=== PATIENT | male | born 1995 | race Native Hawaiian/Other Pacific Islander ===

== ENCOUNTER 2023-02-14 20:56 | Emergency (ER) | payer OTHER, SELFPAY ==
[2023-02-14 21:08] VITALS: BP 127/55; PULSE 55; RESP 18; TEMP 36.8; O2SAT 95
[2023-02-14 21:12] VITALS: BP 127/55; PULSE 55; RESP 18; TEMP 36.8; O2SAT 95; BMI 31.8
[2023-02-14 21:15] VITALS: BP 127/55; PULSE 55; RESP 18; TEMP 36.8; O2SAT 95
[2023-02-14 22:12] LABS: MANUAL DIFF FLAG NO
[2023-02-14 22:13] LABS: Basophils Percent Auto 0.3 % (0-2); Eosinophils Percent Auto 0.3 % (0-4); Hematocrit 39.3 % (42.0-52.0); Hemoglobin 13.3 g/dl (14.0-18.0); Imm Gran Abs Auto 0.07 X10*3/uL (0.00-0.03); Imm Gran Pct Auto 0.6 % (0.0-0.4); Lymphocytes Absolute Auto 2.3 X10*3/uL (1.2-4.9); Lymphocytes Percent Auto 20.3 % (20-40); Mean Corpuscular HGB Conc 33.8 g/dl (31.0-36.0); Mean Corpuscular Hemoglobin 29.5 pg (27.0-33.0); Mean Corpuscular Volume 87.1 fL (80.0-98.0); Mean Platelet Volume 9.9 fL (9.4-12.4); Monocytes Absolute Auto 0.8 X10*3/uL (0.1-1.2); Monocytes Percent Auto 6.6 % (2-11); Neutrophils Absolute Auto 8.3 x10*3/uL (2.0-8.3); Neutrophils Percent Auto 71.9 % (45-73); Platelet Count 281 X10*3/uL (160-400); Red Blood Count 4.51 X10*6/uL (4.60-5.80); Red Cell Distribution Width 12.2 % (11.0-16.0); White Blood Count 11.5 X10*3/uL (4.8-10.8)
[2023-02-14 22:29] LABS: Acetaminophen LAB < 17 mcg/mL (<30); Alanine Aminotransferase 31 U/L (0-40); Albumin Level 4.4 g/dL (3.5-5.0); Alkaline Phosphatase 66 U/L (39-117); Anion Gap 16 (12-20); Aspartate Amino Transferase 15 U/L (5-37); Bilirubin Total 0.4 mg/dL (0.0-1.0); Blood Urea Nitrogen 10 mg/dL (9-16); Calcium 9.4 mg/dL (8.4-10.2); Carbon Dioxide 22 mmol/L (22-29); Chloride 106 mmol/L (96-108); Estimated Glomerular Filt Rate > 60; Ethanol < 10 mg/dL; Glucose Random 123 mg/dL (60-115); Potassium 3.6 mmol/L (3.3-5.1); Salicylate < 5.0 mg/dL (15-30); Sodium 140 mmol/L (135-145); Total Protein 6.7 g/dL (6.5-8.0)
--- NOTE | 2023-02-14 22:42 | ED.GENADULT ---
HPI - General Adult General Chief complaint: ETOH/Substance Use Stated complaint: etoh Time Seen by Provider: 02/14/23 21:32 Source: patient Mode of arrival: ambulatory Limitations: no limitations History of Present Illness HPI narrative: Patient is a 27 year old male presents with a chief complaint of being too high . He states that this afternoon he attended a legal cannabis event at which he both smoked marijuana and consumed edibles however is unable to quantify how much. He reports associated nausea and vomitting 3 times since this afternoon. He states that he also consumed a small amount of alcohol at the event. He denies chest pain, shortness of breath, loss of consciousness, headache, vision changes. States he feels anxious. No SI or HI Related Data Allergies Allergy/AdvReac Type Severity Reaction Status Date / Time Unable to Assess Allergy Unverified 02/14/23 21:32 Review of Systems Review of Systems: Constitutional : No Weight loss, No Fever, No Chills, No Fatigue, No Malaise Cardiovascular : No Chest Pain, No SOB, No Dyspnea on Exertion, No Orthopnea, No Edema, No Palpitations Respiratory : No Cough, No Sputum, No Wheezing Gastrointestinal : + Nausea, + Vomiting, No Diarrhea, No Constipation, No abdominal Pain, No Hematochezia, No Melena Genitourinary : No Dysuria, No Urinary Frequency, No Hematuria, Musculoskeletal : No joint pain, No Myalgias, No Joint Swelling Skin : No Skin Lesions, No rash Neuro : No Weakness, No Numbness, + Dizziness, No Headache Psych : + Anxiet, No Depression All other systems reviewed and are negative Yes all other systems are reviewed and are negative [facility] Past Medical History Attestation statement: The following information was validated with the patient. Source: old records reviewed and nursing notes reviewed Social History Social History Advance Directives: No Advance Directives Information Provided: No Physical Exam ED Vital Signs: Vital Signs - 24 hr 02/14/23 21:08 02/14/23 21:12 02/14/23 21:15 Temperature 98.2 F 98.2 F 98.2 F Pulse Rate 55 55 55 Respiratory Rate 18 18 18 Blood Pressure 127/55 L 127/55 L 127/55 L Pulse Oximetry 95 95 95 Oxygen Delivery Method Room Air Room Air Room Air BMI result Body Mass Index 31.8 Vital signs stable Appearance: Alert.? Oriented X3.?Appears tired and anxious. Head: Normocephalic, atraumatic, no step-offs or deformities Eyes: Pupils equal, round and reactive to light.? ENT: Pharynx normal.? CVS: Normal heart rate and rhythm.? Pulses normal.? Respiratory: No respiratory distress.? Breath sounds normal.? Abdomen: Soft and nontender.? Skin: Skin warm and dry.? Normal skin color.? Normal skin turgor.? Extremities: No lower extremity edema.? No calf ttp. 5/5 strength to bilateral upper and lower extremities Neuro: Oriented X 3.? No motor deficit.? No sensory deficit. CN 2-12 intact . Normal [id number], [id number], steady tandem gait normal coordination Course Reevaluation(s) Reevaluation #1: CBC with slight leukocytosis likely secondary to nausea and vomiting. Chemistry unremarkable. Salicylates, acetaminophen ethanol negative. Has not given us a urine. Significant other at the bedside states large amount of marijuana was consumed. Patient awake, alert, denies SI and HI. Does not want detox. Does not want speak to the care team. At this time will be discharged home. Educated patient on diagnosis and treatment plan, answered all question, patient verbalizes understanding. At this time patient will be discharged home, advised to return with new or worsening symptoms. Educated on worrisome signs and symptoms and when to return. At this time I feel comfortable discharge home. Time: 00:53 Medical Decision Making Medical Decision Making MDM Narrative: Patient is a 27 year old male presenting due to feeling too high after smoking a large amoung of marijuana, consuming edibles, and drinking alcohol at an event this afternoon. Exam remarkable for appearing tired and anxious. Able to answer all questions appropriately. Differential diagnosis includes marijuana intoxication, ETOH intoxication, anxiety. Will rule out electrolyte derangements and UTI. Plan labs, UA. Differential Diagnosis Differential Diagnoses: The differential diagnosis associated with the presentation includes Differential diagnosis includes marijuana intoxication, ETOH intoxication, anxiety. Will rule out electrolyte derangements and UTI. Admission/Observation Consideration of admission/observation: Escalation of care including admission/observation considered Unlikely Lab Data [facility] Lab Attestation statement: I reviewed the patient's lab results. 02/14/23 21:56 02/14/23 21:56 Labs: Lab Results 02/14/23 02/14/23 Range/Units 21:56 21:56 WBC 11.5 H (4.8-10.8) X10*3/uL RBC 4.51 L (4.60-5.80) X10*6/uL Hgb 13.3 L (14.0-18.0) g/dl Hct 39.3 L (42.0-52.0) % MCV 87.1 (80.0-98.0) fL MCH 29.5 (27.0-33.0) pg MCHC 33.8 (31.0-36.0) g/dl RDW 12.2 (11.0-16.0) % Plt Count 281 (160-400) X10*3/uL MPV 9.9 (9.4-12.4) fL Immature Gran % (Auto) 0.6 H (0.0-0.4) % Neut % (Auto) 71.9 (45-73) % Lymph % (Auto) 20.3 (20-40) % Bullock % (Auto) 6.6 (2-11) % Eos % (Auto) 0.3 (0-4) % Baso % (Auto) 0.3 (0-2) % Lymph # (Auto) 2.3 (1.2-4.9) X10*3/uL Bullock # (Auto) 0.8 (0.1-1.2) X10*3/uL Eos # (Auto) 0.0 (0.0-0.4) X10*3/uL Baso # (Auto) 0.0 (0.0-0.2) X10*3/uL Abs Immat Gran (auto) 0.07 H (0.00-0.03) X10*3/uL Absolute Neuts (auto) 8.3 (2.0-8.3) x10*3/uL Absolute Nucleated RBC 0.000 (0.0-0.012) X10*3/uL Nucleated RBC % (auto) 0.0 (0.0-0.2) /100WBC Sodium 140 (135-145) mmol/L Potassium 3.6 (3.3-5.1) mmol/L Chloride 106 (96-108) mmol/L Carbon Dioxide 22 (22-29) mmol/L Anion Gap 16 (12-20) BUN 10 (9-16) mg/dL Creatinine 0.93 (0.5-1.4) mg/dL Estim Creat Clear Calc 129.0 Estimated GFR > 60 Random Glucose 123 H (60-115) mg/dL Calcium 9.4 (8.4-10.2) mg/dL Magnesium 2.0 (1.6-2.6) mg/dL Total Bilirubin 0.4 (0.0-1.0) mg/dL AST 15 (5-37) U/L ALT 31 (0-40) U/L Alkaline Phosphatase 66 (39-117) U/L Total Protein 6.7 (6.5-8.0) g/dL Albumin 4.4 (3.5-5.0) g/dL Salicylates < 5.0 L (15-30) mg/dL Acetaminophen < 17 (<30) mcg/mL Ethyl Alcohol < 10 mg/dL Core Measures AMI core measures followed: Yes Measure exclusions: not indicated Critical Care Time Critical Care Time Critical Care Time: No Discharge Plan Discharge Clinical Impression: Adverse effect of cannabis Patient Disposition: Home, Self-Care Additional Instructions: Take your medications as prescribed. If you were prescribed antibiotics today, it is important that you take your medication to their entirety, do not skip any doses, do not finish them early. Follow-up with your primary care provider this week. Return to the emergency department with new or worsening symptoms. Such as fevers, chills, chest pain, shortness of breath, nausea, vomiting, dizziness, headache, vision changes, lethargy, suicidal or homicidal ideation, hallucination In case of emergency call 911 Referrals: [facility] [Provider Group] - 2 days Celeste Ospina [Emergency Nurse] - 2 days
== END 2023-02-15 01:14 | disposition home or self-care (01) ==
PROVIDERS: Physician Assistant; Emergency Provider Emergency Medicine
DX: T40.715A Adverse effect of cannabis, initial encounter (principal); Y92.9 Unspecified place or not applicable; Z79.899 Other long term (current) drug therapy
CPT/HCPCS: 36415; 80053; 80143; 80179; 80307; 83735; 85025; 99282; 99283